=== PATIENT | female | born 1945 | race African-American/Black ===

== ENCOUNTER → 2017-02-07 | Outpatient (CLI) | payer OTHER | LOC: CIMAGING 13:15 | PROVIDERS: ATTEND Internal Medicine Infectious Disease | DX: J32.9 Chronic sinusitis, unspecified (principal); Z98.890 Other specified postprocedural states | CPT/HCPCS: 70486-PO ==

== ENCOUNTER → 2017-08-04 | Outpatient (CLI) | payer OTHER | LOC: BRMIMAGING 10:57 | PROVIDERS: ATTEND Family Medicine | DX: Z13.820 Encounter for screening for osteoporosis (principal); M81.0 Age-related osteoporosis without current pathological fracture; Z78.0 Asymptomatic menopausal state; Z79.899 Other long term (current) drug therapy ==